=== PATIENT | female | born 1975 | race Caucasian/White ===

== ENCOUNTER 2016-06-18 18:11 | Emergency (ER) | payer BC ==
[~2016-06-18] VITALS: Ht 160 cm; Wt 111.3 kg
[~2016-06-18 18:11] MED LIST: ANT25 PO
[2016-06-18 18:15] VITALS: TEMP 36.7; Ht 160 cm; Wt 111.3 kg
[2016-06-18] MEDS ORDERED: MELO15TA4 PO (19:56)
[2016-06-18] MEDS ORDERED: BUPR-79 PO (19:56)
[2016-06-18] MEDS ORDERED: ONDANSETRON INJ 2 MG/ML 2 ML VIAL IV STA (20:05)
[2016-06-18] MEDS ORDERED: KETOROLAC TROMETHAMINE 30 MG/ML VIAL IV STA (20:05)
[2016-06-18] MEDS ORDERED: HYDROmorphone INJ 1 MG/ML SYR IV STA ×2 (20:05→23:21)
[2016-06-18] MEDS ORDERED: SODIUM CHLORIDE 0.9% 1000ML 1,000 ML IV STA (20:05)
[2016-06-18 20:42] LABS: BASO % 0.3 %; BASO ABS # 0.03 K/uL (0-0.2); COMPLETE YES; EOS % 1.2 %; HEMATOCRIT 43.7 % (37-47); IG% 0.2 %; LYMPH % 18.8 %; LYMPH ABS # 1.85 K/uL (1.2-3.4); MEAN CELL VOLUME 85.2 fL (80-100); MEAN CORPUSCULAR HEMOGLOBIN 29.2 pg (25-34); MEAN CORPUSCULAR HGB CONC 34.3 g/dl (32-36); MEAN PLATELET VOLUME 11.3 fL (7.4-10.4); MONO % 8.3 %; NEUT % 71.2 %; PLATELET COUNT 197 K/uL (130-400); RED BLOOD COUNT 5.13 M/uL (4.2-5.4); WHITE BLOOD COUNT 9.86 K/uL (4.8-10.8)
--- NOTE | 2016-06-18 20:47 | EMERGENCY ROOM VISIT NOTE ---
History Report prepared by Pilar: Arely Sherwood Under the Supervision of: Dr. Wayne Cervantes M.D. First contact with patient: 19:37 Chief Complaint: LEG PAIN,LEG INJURY Stated Complaint: CRAMPING, SHOOTING PAIN IN LOWER BODY History of Present Illness The patient is a 40 year old female who presents to the Emergency Room with complaints of waxing and waning bilateral leg pain beginning earlier today. She describes her pain as cramping and states that it occurs every time she menstruates. The patient states that this pain is "not new, but it's exponentially worse today." Earlier her pain was so severe that she became short of breath. Her pain starts in her pelvis and lower abdomen and radiates into her lower back and hips. Typically her pain shoots down into the right leg , but today her pain is shooting into both legs. Her pain radiates higher into her back than usual. The patient has been passing large clots. Today she passed a clot the size of a half dollar. She states, "It feels like someone is stabbing me." She took 2.5 mg of Oxycodone that helped to alleviate some of her pain. She rates her current pain as a 5/10 in severity. This pain only occurs with her menstrual cycle. She states that these episodes started after she had a colposcopy. She has spoken with her retail seasonal specialist about this but has not had any imaging studies. She denies any history of endometriosis. She has seen her retail seasonal specialist within the last year. The patient also denies any chance of . Source of History: patient Onset: earlier today Position: leg (bilateral) Symptom Intensity: 5/10 Quality: cramping, other (shooting) Timing: waxes/wanes Modifying Factors (Worsening): other (menstruation) Modifying Factors (Relieving): narcotics Associated Symptoms: + SOB, + abdominal pain, + back pain Note: Pt reports heavy vaginal bleeding. Review of Systems See HPI for pertinent positives & negatives. A total of 10 systems reviewed and were otherwise negative. Past Medical & Surgical Medical Problems: (1) Dizziness Family History Cancer Diabetes mellitus Social History Smoking Status: Never Smoker Marital Status: Housing Status: lives with family Current/Historical Medications Scheduled Bupropion (Wellbutrin Sr), 150 MG PO BID Meloxicam (Mobic), 15 MG PO DAILY Scheduled PRN Cetirizine/Pseudoephedrine (Zyrtec-D Er 5MG/120MG), 1 TAB PO Q12 PRN for Allergy Symptoms Oxycodone Immediate Rel Tab (Roxicodone Ir), 1-2 TAB PO Q4H PRN for Severe Pain Allergies Coded Allergies: Doxycycline (Unverified Allergy, Intermediate, FLU SX, 11/13/13) Benzocaine (Unverified Allergy, Mild, BLISTERS, 11/13/13) Triclosan (Unverified Allergy, Mild, BLISTERS, 11/13/13) Gluten (Verified Adverse Reaction, Unknown, sensitivity, 11/13/13) Uncoded Allergies: ALICE D (Allergy, Intermediate, MIGRAINE, 09/25/10) DERMAPLAST (Allergy, Mild, RED, RAW, 09/25/10) Physical Exam Vital Signs Date Time Temp Pulse Resp B/P Pulse Ox O2 Delivery O2 Flow Rate FiO2 06/19/16 00:16 81 06/19/16 00:00 60 16 124/80 99 Room Air 06/18/16 22:10 74 16 127/67 97 Room Air 06/18/16 20:38 75 06/18/16 20:11 71 16 129/80 96 Room Air 06/18/16 18:15 36.7 96 20 139/86 95 Room Air Physical Exam GENERAL: Patient is a healthy-appearing well-nourished 40 year old female. HEAD: Normocephalic atraumatic EYES: Ocular movements intact pupils equal and react to light OROPHARYNX mucous membranes are moist no exudates present no erythema or edema present NECK: Supple no nuchal rigidity CHEST: Good equal expansion LUNGS: Clear and equal to auscultation CARDIAC: Normal S1 and S2 ABDOMEN: Soft, right lower and left lower pelvic pain, no guarding, no rebound. BACK: No CVA tenderness EXTREMITIES: No pain upon palpation normal muscle strength in all groups no clubbing cyanosis or edema NEURO: Patient is following commands is answering questions appropriately. Alert and oriented x3 Cranial Nerves 2-12 grossly intact Medical Decision & Procedures ER Provider Diagnostic Interpretation: Radiology results as stated below per my review and radiologist interpretation: PELVIC ULTRASOUND CLINICAL HISTORY: Severe pelvic pain. COMPARISON STUDY: None. TECHNIQUE: Transabdominal and transvaginal sonography of the pelvis was performed. FINDINGS: The uterus measures 9.7 x 5 x 6.9 cm. A few nabothian cysts are incidentally noted. The endometrium measures 1.4 cm in thickness. The right ovary was not visualized. The left ovary measured 4.2 x 4.6 x 4.6 cm and contained a 3.4 cm cyst. Color flow is identified within the left ovary. There was no free fluid within the pelvis. IMPRESSION: 1. 3.4 cm left ovarian cyst. 2. Nonvisualization of the right ovary. 3. Endometrial thickness of 1.4 cm which could be correlated with menstrual cycle. Electronically signed by: Delmar Milian M.D. 06/18/2016 10:32 PM Dictated Date/Time: 06/18/2016 10:[address] ABDOMEN & PELVIS: Question borderline wall thickening of the sigmoid colon in the setting of severe diverticulosis. The combination may represent very early/mild diverticulitis. 4.8 cm left adnexal cystic lesion. Likely of ovarian origin. Consider followup with ultrasound. May be done as an outpatient/nonemergent the there is no left lower quadrant pain. Subcutaneous millimeter nodule in the lateral left lower lobe (series 2, image 7 ). Likely related to prior infection/prior inflammation. May consider 12 month followup to assess for stability. Appendix not seen with certainty. There is mild lymphadenopathy in the right lower quadrant that could represent mesenteric adenitis. Remainder of examination shows no definite evidence for an acute inflammatory process. Radiologist: Albino Wiggins MD. Laboratory Results 06/18/16 20:20 Red Blood Count 5.13, Mean Corpuscular Volume 85.2, Mean Corpuscular Hemoglobin 29.2, Mean Corpuscular Hemoglobin Concent 34.3, Mean Platelet Volume 11.3, Neutrophils (%) (Auto) 71.2, Lymphocytes (%) (Auto) 18.8, Monocytes (%) (Auto) 8.3, Eosinophils (%) (Auto) 1.2, Basophils (%) (Auto) 0.3, Neutrophils # (Auto) 7.02, Lymphocytes # (Auto) 1.85, Monocytes # (Auto) 0.82, Eosinophils # (Auto) 0.12, Basophils # (Auto) 0.03 06/18/16 20:20 Test 06/18/16 20:20 White Blood Count 9.86 K/uL (4.8-10.8) Red Blood Count 5.13 M/uL (4.2-5.4) Hemoglobin 15.0 g/dL (12.0-16.0) Hematocrit 43.7 % (37-47) Mean Corpuscular Volume 85.2 fL (80-100) Mean Corpuscular Hemoglobin 29.2 pg (25-34) Mean Corpuscular Hemoglobin Concent 34.3 g/dl (32-36) Platelet Count 197 K/uL (130-400) Mean Platelet Volume 11.3 fL (7.4-10.4) Neutrophils (%) (Auto) 71.2 % Lymphocytes (%) (Auto) 18.8 % Monocytes (%) (Auto) 8.3 % Eosinophils (%) (Auto) 1.2 % Basophils (%) (Auto) 0.3 % Neutrophils # (Auto) 7.02 K/uL (1.4-6.5) Lymphocytes # (Auto) 1.85 K/uL (1.2-3.4) Monocytes # (Auto) 0.82 K/uL (0.11-0.59) Eosinophils # (Auto) 0.12 K/uL (0-0.5) Basophils # (Auto) 0.03 K/uL (0-0.2) RDW Standard Deviation 43.8 fL (36.4-46.3) RDW Coefficient of Variation 14.0 % (11.5-14.5) Immature Granulocyte % (Auto) 0.2 % Immature Granulocyte # (Auto) 0.02 K/uL (0.00-0.02) Urine Color YELLOW Urine Appearance CLEAR (CLEAR) Urine pH 7.0 (4.5-7.5) Urine Specific [place] 1.020 (1.000-1.030) Urine Protein NEG (NEG) Urine Glucose (UA) NEG (NEG) Urine Ketones NEG (NEG) Urine Occult Blood 3+ (NEG) Urine Nitrite NEG (NEG) Urine Bilirubin NEG (NEG) Urine Urobilinogen NEG (NEG) Urine Leukocyte Esterase TRACE (NEG) Urine WBC (Auto) 1-5 /hpf (0-5) Urine RBC (Auto) >30 /hpf (0-4) Urine Hyaline Casts (Auto) 0 /lpf (0-5) Urine Epithelial Cells (Auto) 5-10 /lpf (0-5) Urine Bacteria (Auto) NEG (NEG) Urine Test NEG (NEG) Anion Gap 7.0 mmol/L (3-11) Est Creatinine Clear Calc Drug Dose 110.7 ml/min Estimated GFR () 105.3 Estimated GFR (Non- 90.8 BUN/Creatinine Ratio 22.0 (10-20) Calcium Level 9.1 mg/dl (8.5-10.1) Total Bilirubin 0.3 mg/dl (0.2-1) Direct Bilirubin < 0.1 mg/dl (0-0.2) Aspartate Amino Transf (AST/SGOT) 7 U/L (15-37) Alanine Aminotransferase (ALT/SGPT) 21 U/L (12-78) Alkaline Phosphatase 58 U/L (45-117) Total Protein 7.8 gm/dl (6.4-8.2) Albumin 3.6 gm/dl (3.4-5.0) Lipase 117 U/L (73-393) Labs reviewed by ED physician. Medications Administered Medications (Trade) Dose Ordered Sig/Kiana Route Start Time Stop Time Status Last Admin Dose Admin Hydromorphone HCl (Dilaudid Inj) 1 mg NOW STAT IV 06/18/16 20:05 06/18/16 20:08 DC 06/18/16 20:25 1 MG Ketorolac Tromethamine 30 mg 30 mg NOW STAT IV 06/18/16 20:05 06/18/16 20:08 DC 06/18/16 20:24 30 MG Sodium Chloride (Nss 1000ml) 1,000 ml @ 999 mls/hr Q1H1M STAT IV 06/18/16 20:05 06/18/16 21:05 DC 06/18/16 20:23 999 MLS/HR Ondansetron HCl (Zofran Inj) 4 mg NOW STAT IV 06/18/16 20:05 06/18/16 20:08 DC 06/18/16 20:24 4 MG Hydromorphone HCl (Dilaudid Inj) 1 mg NOW STAT IV 06/18/16 23:21 06/18/16 23:23 DC 06/18/16 23:32 1 MG Metoclopramide HCl (Reglan Inj) 10 mg NOW STAT IV 06/18/16 23:21 06/18/16 23:23 DC 06/18/16 23:31 10 MG ED Course 1937: Past medical records reviewed. The patient was evaluated in room C4. A complete history and physical examination was performed. 2004: Zofran 4 mg IV, NSS 1000 ml @ 999 mls/hr IV, Toradol 30 mg IV, Dilaudid 1 mg IV 2055: I reassessed the patient at this time. She is doing well. 9: I updated the patient on her results. We discussed the risks and benefits associated with a CT scan and the patient is in agreement with the treatment plan. 2321: Reglan 10 mg IV, Dilaudid 1 mg IV 5: I reassessed the patient at this time. She is feeling better and resting comfortably. I discussed the results and treatment plan with the patient. I answered all pertaining questions that she had. She expressed understanding and verbalized agreement. The patient will be discharged home. Medical Decision Differential diagnosis: Etiologies such as ectopic , dysfunction uterine bleeding, bleeding dyscrasia, trauma, infection, as well as others were entertained. This is a 40-year-old female who presents emergency Department with progressively worsening abdominal pain that occurs only with her periods. The patient states that she had a colposcopy performed several years ago and she has been having progressive symptoms ever since then. I do believe that this is consistent with endometriosis. I expressed this to the patient several times however she would like an ultrasound done and then a CAT scan performed. I will note that the patient has normal CBC normal renal profile normal liver profile normal lipase. The patient's CAT scan was concerning for possible diverticulitis however I will note that the patient is tender in the pelvic regions and in addition does not have an elevation in her white blood count. She also has no rebound guarding in the right lower quadrant. My index of suspicion for appendicitis is low. She does appear to have a mesenteric adenitis. Based on these findings I believe the patient can be safely discharged home with pain control. Due to to the gynecological nature of the patient's pain I strongly recommended that the patient follow-up with gynecology. Patient was recommended to take 1000 mgs Tylenol home and oxyphil breakthrough pain. Patient was in agreement with the treatment plan. Impression Primary Impression: Mesenteric adenitis Additional Impression: Abdominal pain Scribe Attestation The scribe's documentation has been prepared under my direction and personally reviewed by me in its entirety. I confirm that the note above accurately reflects all work, treatment, procedures, and medical decision making performed by me. Departure Information Dispostion Home / Self-Care Prescriptions Oxycodone Immediate Rel Tab (ROXICODONE IR) 5 Mg Tab 1-2 TAB PO Q4H Y for Severe Pain, #24 TAB Prov: Wayne Cervantes MD 06/19/16 Referrals No Doctor, Assigned (PCP) Maureen Pineda D.O. Owusu, Samuel, MD Forms HOME CARE DOCUMENTATION FORM, IMPORTANT VISIT INFORMATION, School Instructions, Work Instructions Patient Instructions ED Abd Pain Unkn Cause Fem, ED Diet Clear Liquid, My [facility] Additional Instructions Clear liquid diet next 48 hours You received narcotic or benzodiazepene medication while in the emergency room today. Do not drive, operate heavy machinery, or drink alcohol under the influence of this medication. Take 1000 mg Tylenol every 6 hours Take oxy for breakthrough pain Radiographs and CTs will be reread by a radiologist in the morning. You have been examined and treated today on an emergency basis only. This is not a substitute for, or an effort to provide, complete comprehensive medical care. It is impossible to recognize and treat all injuries or illnesses in a single emergency department visit. It is therefore important that you follow up closely with Dr Pineda. Call as soon as possible for an appointment. Thank you for your time and consideration. I look forward to speaking with you again soon. Please don't hesitate to call us if you have any questions. Problem Qualifiers Additional Impression: Abdominal pain Abdominal location: generalized Qualified Codes: R10.84 - Generalized abdominal pain
[2016-06-18 20:51] LABS: URINE APPEARANCE CLEAR (CLEAR); URINE BILIRUBIN NEG (NEG); URINE COLOR YELLOW; URINE NITRITE NEG (NEG); UROBILINOGEN NEG (NEG)
[2016-06-18 20:54] LABS: MANUAL MICROSCOPIC REQUIRED? NO; REVIEW REQ? NO
[2016-06-18] MEDS ORDERED: CETITAB27 PO (21:00)
[2016-06-18 21:07] LABS: ALT/SGPT 21 U/L (12-78); AST/SGOT 7 U/L (15-37); BLOOD UREA NITROGEN 18 mg/dl (7-18); CALCIUM 9.1 mg/dl (8.5-10.1); CARBON DIOXIDE 27 mmol/L (21-32); CHLORIDE 105 mmol/L (98-107); CREATININE 0.81 mg/dl (0.60-1.20); GLUCOSE 87 mg/dl (70-99); POTASSIUM 4.1 mmol/L (3.5-5.1); SODIUM 139 mmol/L (136-145)
[2016-06-18 21:10] LABS: ALKALINE PHOSPHATASE 58 U/L (45-117)
--- NOTE | 2016-06-18 22:33 | DIAGNOSTIC IMAGING REPORT ---
PELVIC ULTRASOUND CLINICAL HISTORY: Severe pelvic pain. COMPARISON STUDY: None. TECHNIQUE: Transabdominal and transvaginal sonography of the pelvis was performed. FINDINGS: The uterus measures 9.7 x 5 x 6.9 cm. A few nabothian cysts are incidentally noted. The endometrium measures 1.4 cm in thickness. The right ovary was not visualized. The left ovary measured 4.2 x 4.6 x 4.6 cm and contained a 3.4 cm cyst. Color flow is identified within the left ovary. There was no free fluid within the pelvis. IMPRESSION: 1. 3.4 cm left ovarian cyst. 2. Nonvisualization of the right ovary. 3. Endometrial thickness of 1.4 cm which could be correlated with menstrual cycle. Electronically signed by: Delmar Milian M.D. 06/18/2016 10:32 PM Dictated Date/Time: 06/18/2016 10:30 PM
[2016-06-18] MEDS ORDERED: METOCLOPRAMIDE HCL INJ 5 MG/ML 2 ML VIAL IV STA (23:21)
[2016-06-18] MEDS ORDERED: OPTIRAY 320 IV PRN (23:30)
[2016-06-19] MEDS ORDERED: OXYC1TAB3 PO (01:07)
[2016-06-19] MEDS ORDERED: OXYCODONE IR HOME PACK PO ONE (01:15)
[2016-06-19 01:19] VITALS: BP 134/64; PULSE 76; O2SAT 98
--- NOTE | 2016-06-19 06:58 | DIAGNOSTIC IMAGING REPORT ---
CT OF THE ABDOMEN AND PELVIS WITH CONTRAST CLINICAL HISTORY: Diffuse abdominal pain. COMPARISON STUDY: Pelvic ultrasound June 18, 2016. TECHNIQUE: Following IV administration of 102 mL of Optiray-320, axial images of the abdomen and pelvis were obtained from the lung bases to the proximal femurs. Images were reviewed in the axial, sagittal, and coronal planes. IV contrast was administered without complication. CT DOSE: 1573.09 mGy.cm FINDINGS: A 4 mm left lower lobe pulmonary nodule shown image 31 is likely benign. The liver, spleen, adrenal glands, kidneys and pancreas are unremarkable. Minimal calcification along the posterior segment right hepatic lobe is indeterminate but chronic. The gallbladder is surgically absent. There is no biliary ductal dilatation. There is no evidence for a bowel obstruction. The appendix is not visualized but there is no right lower quadrant inflammation. A 3.8 cm left ovarian cyst corresponds to the cyst shown on prior pelvic ultrasound. No pneumatosis, free air or portal venous gas is present. There is no lymphadenopathy. A fat-containing umbilical hernia is present. Skeletal structures are unremarkable. IMPRESSION: 1. 3.8 cm left ovarian cyst, as shown on pelvic ultrasound. 2. Left colon diverticulosis without evidence for acute diverticulitis. 3. Nonvisualization of the appendix but no right lower quadrant inflammation. 4. No bowel obstruction. Electronically signed by: Delmar Milian M.D. 06/19/2016 6:56 AM Dictated Date/Time: 06/19/2016 6:50 AM
== END 2016-06-19 01:20 | disposition home or self-care (01) ==
LOC: C.EDB 18:12 → C.EDC 06-19 01:20
DX: I88.0 Nonspecific mesenteric lymphadenitis (principal); R10.30 Lower abdominal pain, unspecified; Z79.899 Other long term (current) drug therapy; Z88.8 Allergy status to other drugs, medicaments and biological substances; Z91.018 Allergy to other foods; Z80.9 Family history of malignant neoplasm, unspecified; Z83.3 Family history of diabetes mellitus